=== PATIENT | male | born 1950 | race Caucasian/White ===

== ENCOUNTER 2017-09-23 08:29 | Emergency (ER) | payer MEDICARE, MEDICAID ==
[~2017-09-23] VITALS: Ht 175.3 cm; Wt 79.7 kg
[~2017-09-23 08:29] MED LIST: FURO-92 PO; IBUP-1222 PO
[2017-09-23 08:32] VITALS: BP 154/90
[2017-09-23 09:27] LABS: BASOPHILS # (AUTO) 0.04 x10^3/uL (0-0.1); BASOPHILS % (AUTO) 1 % (0-1); EOSINOPHILS # (AUTO) 0.13 x10^3/uL (0-0.4); EOSINOPHILS % (AUTO) 2 % (1-7); HCT (SEDRATE) 39.4 % (39.2-51.8); LYMPHOCYTES # (AUTO) 1.01 x10^3/uL (1-3.4); LYMPHOCYTES % (AUTO) 14 % (22-44); MD NO; MEAN CORPUSCULAR HEMOGLOBIN 29.2 pg (27.5-34.5); MEAN CORPUSCULAR HGB CONC 33.7 g/dL (33.2-36.2); MEAN CORPUSCULAR VOLUME 86.8 fL (81-97); MEAN PLATELET VOLUME 8.6 fL (7.4-10.4); MONOCYTES # (AUTO) 0.65 x10^3/uL (0.2-0.8); MONOCYTES % (AUTO) 9 % (2-9); NEUTROPHILS # (AUTO) 5.59 x10^3/uL (1.8-6.8); NEUTROPHILS % (AUTO) 75 % (42-75); PLATELET COUNT 243 x10^3/uL (130-400); RED BLOOD COUNT 4.54 x10^6/uL (4.38-5.82); RED CELL DISTRIBUTION WIDTH 13.2 % (9.4-14.8)
[2017-09-23 10:19] LABS: SEDIMENTATION RATE 56 mm/hr (0-10)
== END 2017-09-23 11:31 | disposition home or self-care (01) ==
LOC: ED 11:20
DX: M13.142 Monoarthritis, not elsewhere classified, left hand (principal); F17.210 Nicotine dependence, cigarettes, uncomplicated
CPT/HCPCS: 36415; 84550; 85025; 85651; 99285

== ENCOUNTER 2019-07-05 09:33 | Emergency (ER) | payer MEDICARE, MEDICAID ==
[~2019-07-05] VITALS: Ht 172.7 cm; Wt 75.3 kg
[2019-07-05 09:45] VITALS: BP 151/80
--- NOTE | 2019-07-05 10:24 | NUR ---
PT HERE WITH C/O LEFT KNEE AND LEFT ANKLE PAIN S/P GLF 2 MONTHS AGO.
--- NOTE | 2019-07-05 11:05 | NUR ---
Patient/Caregiver given discharge instructions and they have confirmed that they understand the instructions. Patient ambulatory with steady gait.
== END 2019-07-05 11:07 | disposition home or self-care (01) ==
LOC: ED 10:38
DX: S83.512A Sprain of anterior cruciate ligament of left knee, initial encounter (principal); M25.572 Pain in left ankle and joints of left foot; W18.30XA Fall on same level, unspecified, initial encounter; Y93.89 Activity, other specified; Y92.009 Unspecified place in unspecified non-institutional (private) residence as the place of occurrence of the external cause; Y99.8 Other external cause status
CPT/HCPCS: 29505; 99283

== ENCOUNTER 2019-07-19 09:27 | Emergency (ER) | payer MEDICARE, MEDICAID ==
[~2019-07-19] VITALS: Ht 172.7 cm; Wt 76.5 kg
[2019-07-19 09:31] VITALS: BP 113/75
[2019-07-19] MEDS ORDERED: KETOROLAC 30 MG/1 ML ONE (09:53)
[2019-07-19] MEDS ORDERED: KETOROLAC 30 MG/1 ML IM ONE (10:00)
--- NOTE | 2019-07-19 10:00 | NUR ---
PT RATES PAIN AT 8/10. TORADOL GIVEN PER EMAR.
--- NOTE | 2019-07-19 10:02 | NUR ---
AMBULATORY TO RADIOLOGY, PER PT PREFERENCE: LIMPING GAIT, USING OWN CANE
== END 2019-07-19 10:59 | disposition home or self-care (01) ==
LOC: ED 09:51
DX: M25.562 Pain in left knee (principal); G89.29 Other chronic pain; M19.90 Unspecified osteoarthritis, unspecified site
CPT/HCPCS: 73564; 96372; 99283; J1885

== ENCOUNTER 2019-10-14 06:57 | Emergency (ER) | payer MEDICARE, MEDICAID ==
[~2019-10-14] VITALS: Ht 172.7 cm; Wt 72.5 kg
[2019-10-14 07:00] VITALS: BP 128/88
--- NOTE | 2019-10-14 07:17 | NUR ---
first contact with pt. pt c/o left ankle pain.pt states "keeps tripping up". started 1 week ago. stated weavers when he walks, can't walk straight. ONLY RECENT INJURY, FELL ABOT 1.5 WEEKS AGO. pt's aox4. resps even and unlabored. edmd at bedside to evaluate at this time.
--- NOTE | 2019-10-14 08:05 | NUR ---
Patient given discharge instructions and they have confirmed that they understand the instructions.
== END 2019-10-14 08:06 | disposition home or self-care (01) ==
LOC: ED 07:37
DX: S93.402A Sprain of unspecified ligament of left ankle, initial encounter (principal); I25.10 Atherosclerotic heart disease of native coronary artery without angina pectoris; F17.200 Nicotine dependence, unspecified, uncomplicated; Z86.73 Personal history of transient ischemic attack (TIA), and cerebral infarction without residual deficits; X50.1XXA Overexertion from prolonged static or awkward postures, initial encounter; Y93.89 Activity, other specified; Y92.89 Other specified places as the place of occurrence of the external cause; Y99.8 Other external cause status
CPT/HCPCS: 99283